=== PATIENT | male | born 1950 | race Caucasian/White ===

== ENCOUNTER 2022-03-20 07:39 | Day surgery (SDC) | payer MEDICARE, MEDICAID ==
[2022-03-20] MEDS ORDERED: Propofol 200 MG/20 ML SDV IV ONE (07:40)
[2022-03-20] MEDS ORDERED: Sodium Chloride 0.9% 10 ML Syringe FLUSH PRN (07:45)
[2022-03-20] MEDS ORDERED: Lactated Ringers 1,000 ML IV SCH (07:45)
== END 2022-03-20 10:55 | disposition home or self-care (01) ==
LOC: FB.SDS 07:39
PROVIDERS: ATTEND Surgery
DX: Z12.11 Encounter for screening for malignant neoplasm of colon (principal); K63.5 Polyp of colon; K57.30 Diverticulosis of large intestine without perforation or abscess without bleeding; E78.00 Pure hypercholesterolemia, unspecified; I12.9 Hypertensive chronic kidney disease with stage 1 through stage 4 chronic kidney disease, or unspecified chronic kidney disease; N18.9 Chronic kidney disease, unspecified; E11.22 Type 2 diabetes mellitus with diabetic chronic kidney disease; E21.3 Hyperparathyroidism, unspecified; G47.33 Obstructive sleep apnea (adult) (pediatric); F32.A Depression, unspecified; E66.9 Obesity, unspecified; Z80.0 Family history of malignant neoplasm of digestive organs; Z88.0 Allergy status to penicillin; Z88.8 Allergy status to other drugs, medicaments and biological substances; Z91.040 Latex allergy status; Z79.899 Other long term (current) drug therapy; Z79.84 Long term (current) use of oral hypoglycemic drugs
CPT/HCPCS: 00812; 45385; 82947; 88305; J2704; J7120